=== PATIENT | female | born 1940 | race Caucasian/White ===

== ENCOUNTER 2018-10-16 12:39 | Emergency (ER) | payer MEDICARE ==
[~2018-10-16] VITALS: Ht 170.2 cm; Wt 69.5 kg
[2018-10-16 12:45] VITALS: Ht 170.2 cm; Wt 69.5 kg
[2018-10-16] MEDS ORDERED: CO Q-10100 MG PO (12:48)
[2018-10-16] MEDS ORDERED: FISH OIL 1,0001 CA1 PO (12:48)
[2018-10-16] MEDS ORDERED: ESTRACE 0.5 MG0.5 MG PO (12:49)
[2018-10-16] MEDS ORDERED: MAG-OXIDE400 MG PO (12:49)
[2018-10-16] MEDS ORDERED: METHOTREXATE2.5 MG PO (12:50)
[2018-10-16] MEDS ORDERED: PLAQUENIL (12:50)
[2018-10-16] MEDS ORDERED: BAYER CHEWABLE81 MG PO (12:50)
[2018-10-16] MEDS ORDERED: NORVASC5 MG PO (12:51)
[2018-10-16] MEDS ORDERED: FOLIC ACID1 MG PO (12:51)
[2018-10-16] MEDS ORDERED: PROLIA INJ 660 MG/M1 IJ (12:51)
[2018-10-16] MEDS ORDERED: RESTASIS (12:52)
[2018-10-16] MEDS ORDERED: LOPRESSOR25 MG PO (12:53)
[2018-10-16] MEDS ORDERED: PRED FORTE5 ML EACH EYE (12:53)
[2018-10-16 13:19] LABS: BASOPHILS 0.9 % (0-2); EOSINOPHILS 2.6 % (0-7); HEMATOCRIT 39.8 % (36.0-48.0); HEMOGLOBIN 13.4 g/dL (12-16); IMMATURE GRANULOCYTES 0.2 % (0-5); LYMPHOCYTES 28.9 % (15-50); MCH 31.8 pg (26.0-34.0); MCHC 33.7 g/dL (31.0-37.0); MCV 94.5 fL (80.0-100.0); MEAN PLATELET VOLUME 10.6 fL (7.4-10.4); MONOCYTES 8.6 % (2-11); NEUTROPHILS 58.8 % (40-80); PLATELET COUNT 215 10x3/uL (130-400); RBC 4.21 10x6/uL (4.00-5.40); RDW 13.2 % (11.5-14.5); WBC 4.5 10x3/uL (4.8-10.8)
[2018-10-16 13:33] LABS: ALBUMIN 3.6 g/dL (3.4-5.0); ALKALINE PHOSPHATASE 75 U/L (46-116); ALT (SGPT) 25 U/L (10-68); BILIRUBIN - TOTAL 0.28 mg/dL (0.2-1.3); CALC OSMOLALITY 275 mosm/kg (275-300); CALCIUM 9.4 mg/dL (8.5-10.1); CARBON DIOXIDE 29.3 mmol/L (21.0-32.0); CHLORIDE - SERUM 98 mmol/L (98-107); CREATININE - SERUM 0.8 mg/dL (0.6-1.3); GLUCOSE 107 mg/dL (74-106); POTASSIUM - SERUM 3.9 mmol/L (3.5-5.1); SODIUM 137 mmol/L (136-145); UREA NITROGEN 18 mg/dL (7-18); eGFR NON AFRICAN AMERICAN 73 mL/min (90-120)
[2018-10-16 13:43] LABS: CKMB 1.2 U/L (0.0-3.6); CREATINE KINASE 80 UL (21-215)
[2018-10-16 13:44] LABS: TROPONIN-I < 0.017 ng/mL (0.000-0.060)
[2018-10-16 16:30] VITALS: BP 134/71
== END 2018-10-16 16:32 | disposition home or self-care (01) ==
LOC: D.ER 12:39
PROVIDERS: Emergency Medicine
DX: M25.512 Pain in left shoulder (principal); R07.9 Chest pain, unspecified; R11.0 Nausea; R42 Dizziness and giddiness